=== PATIENT | male | born 1990 | race Caucasian/White ===

== ENCOUNTER 2020-07-09 16:59 | Emergency (ER) | payer OTHER ==
[~2020-07-09] VITALS: Ht 177.8 cm; Wt 104.3 kg
[~2020-07-09 16:59] MED LIST: BACTRIM DS TAB1 EACH PO; FLAGYL500 MG PO; HYDROCODONE-AP1 EAC6 PO; IBUPROFEN 800800 M1 PO; LIDOCREAM5 GM TP; MOBIC7.5 MG PO; NOHOMEMEDICATIONS; NORCO 5-325 TA1 EACH PO; ROBAXIN 750 MG750 M1 PO; SILVADENE20 GM TP
[2020-07-09] MEDS ORDERED: BACTRIM DS TAB1 EACH PO (17:27)
[2020-07-09 17:40] VITALS: BP 115/89
== END 2020-07-09 17:40 | disposition home or self-care (01) ==
LOC: M.ERS 16:59
DX: L02.412 Cutaneous abscess of left axilla (principal); F17.210 Nicotine dependence, cigarettes, uncomplicated